=== PATIENT | male | born 1960 | race Caucasian/White ===

== ENCOUNTER 2025-03-17 21:45 | Emergency (ER) | payer OTHER ==
[~2025-03-17] VITALS: Ht 193 cm; Wt 82.0 kg
[2025-03-17 21:47] VITALS: O2SAT 98
[2025-03-17] MEDS: ACETAMINOPHEN 325MG TABLET PO ONE (22:12)
[2025-03-17] MEDS: LIDOCAINE 5% PATCH TOP SCH (22:13)
[2025-03-17] MEDS ORDERED: IBUP-1455 MT (23:21)
[2025-03-18 00:04] VITALS: BP 122/89; PULSE 71; RESP 10; TEMP 36.7; O2SAT 98
== END 2025-03-18 00:13 | disposition home or self-care (01) ==
LOC: ER 21:45
DX: S06.0XAA Concussion with loss of consciousness status unknown, initial encounter (principal); Z79.899 Other long term (current) drug therapy; W19.XXXA Unspecified fall, initial encounter; Y93.89 Activity, other specified; Y92.89 Other specified places as the place of occurrence of the external cause; Y99.8 Other external cause status
CPT/HCPCS: 99284; A4606